=== PATIENT | male | born 1960 | race Caucasian/White ===

== ENCOUNTER → 2019-05-10 | Day surgery (SDC) | payer OTHER ==
[~2019-05-10] MED LIST: ALBUTEROL SULFATE 2.5 MG/3 ML NEBU. NEB PRN; ATROPINE 0.5 MG/5 ML DISP.SYRIN. IV PRN; IV RINGERS SOLUTION,LACTATED 1,000 ML IV SCH; LIDOCAINE 2% PF Vial for OR 5 ML VIAL. ONE; LISI-338 PO; NALOXONE 0.4 MG/ML VIAL. IV PRN; ONDANSETRON PF 4 MG/2 ML VIAL. IV PRN; PRAV20TA2 PO; PROPOFOL 40 ML IV ONE; diphenhydrAMINE 50 MG/ML VIAL IV PRN
[2019-05-10 11:20] VITALS: BP 98/62
== END | disposition home or self-care (01) ==
LOC: SURG 09:28
PROVIDERS: ATTEND Internal Medicine Gastroenterology
DX: Z12.11 Encounter for screening for malignant neoplasm of colon (principal); K64.8 Other hemorrhoids; K63.89 Other specified diseases of intestine; I10 Essential (primary) hypertension; E78.00 Pure hypercholesterolemia, unspecified; E78.5 Hyperlipidemia, unspecified; Z79.899 Other long term (current) drug therapy; Z80.0 Family history of malignant neoplasm of digestive organs; Z88.1 Allergy status to other antibiotic agents; Z98.890 Other specified postprocedural states; Z86.010 Personal history of colon polyps
CPT/HCPCS: 45378; J2704; J7120; J2001

== ENCOUNTER → 2021-06-07 | Outpatient (CLI) | payer OTHER ==
[2019-05-10 11:20] VITALS: BP 98/62
[~2021-06-07] MED LIST changes: -ALBUTEROL SULFATE 2.5 MG/3 ML NEBU. NEB PRN; -ATROPINE 0.5 MG/5 ML DISP.SYRIN. IV PRN; -IV RINGERS SOLUTION,LACTATED 1,000 ML IV SCH; -LIDOCAINE 2% PF Vial for OR 5 ML VIAL. ONE; -LISI-338 PO; +LISI5TAB15 PO; -NALOXONE 0.4 MG/ML VIAL. IV PRN; -ONDANSETRON PF 4 MG/2 ML VIAL. IV PRN; -PROPOFOL 40 ML IV ONE; -diphenhydrAMINE 50 MG/ML VIAL IV PRN
--- NOTE | 2021-06-08 08:32 | RAD ---
XR CERVICAL SPINE 2-3V Clinical Indication: Reason: NECK PAIN RADIATING DOWN LEFT ARM / Spl. Instructions: / History: Comparison: None. Findings: There is negligible grade 1 retrolisthesis of C4 on C5. The alignment is otherwise maintained. There is mild disc space narrowing and degenerative endplate spurring of C4/C5 and C6/C7. The prevertebral soft tissues are normal. The lateral masses of C1 are symmetric. The odontoid is intact. The lung api alena are clear. There are tiny lateral bony projections bilaterally at the level of C4. There is mild uncovertebral and facet joint hypertrophy. IMPRESSION: Mild degenerative spondylosis. Electronically signed by: Akash Moore MD (06/08/2021 8:29 AM) [id number]
== END ==
LOC: RAD 15:51
PROVIDERS: ATTEND Physician Assistant
DX: M47.22 Other spondylosis with radiculopathy, cervical region (principal); M48.02 Spinal stenosis, cervical region; M47.892 Other spondylosis, cervical region
CPT/HCPCS: 72040